=== PATIENT | male | born 1955 | race Caucasian/White ===

== ENCOUNTER → 2018-08-01 | Outpatient (CLI) | payer MEDICARE, OTHER | LOC: M.RAD 15:30 | DX: M81.0 Age-related osteoporosis without current pathological fracture (principal); M85.89 Other specified disorders of bone density and structure, multiple sites ==

== ENCOUNTER → 2021-02-01 | Outpatient (CLI) | payer MEDICARE, OTHER | LOC: M.RAD 15:26 | PROVIDERS: ATTEND Internal Medicine Rheumatology | DX: Z13.820 Encounter for screening for osteoporosis (principal); M85.88 Other specified disorders of bone density and structure, other site ==